=== PATIENT | female | born 1965 | race Caucasian/White ===

== ENCOUNTER → 2017-09-11 | Outpatient (CLI) | payer OTHER | LOC: HYPER 06:45 | DX: T81.31XA Disruption of external operation (surgical) wound, not elsewhere classified, initial encounter (principal); Z85.3 Personal history of malignant neoplasm of breast; F17.200 Nicotine dependence, unspecified, uncomplicated; Y92.89 Other specified places as the place of occurrence of the external cause; Y83.8 Other surgical procedures as the cause of abnormal reaction of the patient, or of later complication, without mention of misadventure at the time of the procedure ==

== ENCOUNTER → 2017-09-12 | Outpatient (CLI) | payer OTHER | LOC: RAD 09:21 | DX: R05 Cough (principal) ==

== ENCOUNTER → 2017-09-15 | Outpatient (CLI) | payer OTHER | LOC: HYPER 08:00 | DX: L59.8 Other specified disorders of the skin and subcutaneous tissue related to radiation (principal); F17.200 Nicotine dependence, unspecified, uncomplicated; Z85.3 Personal history of malignant neoplasm of breast; Y84.2 Radiological procedure and radiotherapy as the cause of abnormal reaction of the patient, or of later complication, without mention of misadventure at the time of the procedure ==

== ENCOUNTER → 2017-09-16 | Outpatient (CLI) | payer OTHER | LOC: HYPER 09-15 11:12 | DX: T81.31XD Disruption of external operation (surgical) wound, not elsewhere classified, subsequent encounter (principal); L59.8 Other specified disorders of the skin and subcutaneous tissue related to radiation; F17.200 Nicotine dependence, unspecified, uncomplicated; Y83.8 Other surgical procedures as the cause of abnormal reaction of the patient, or of later complication, without mention of misadventure at the time of the procedure; Y84.2 Radiological procedure and radiotherapy as the cause of abnormal reaction of the patient, or of later complication, without mention of misadventure at the time of the procedure ==

== ENCOUNTER → 2017-09-17 | Outpatient (CLI) | payer OTHER | LOC: HYPER 07:04 | DX: T81.31XD Disruption of external operation (surgical) wound, not elsewhere classified, subsequent encounter (principal); L59.8 Other specified disorders of the skin and subcutaneous tissue related to radiation; F17.200 Nicotine dependence, unspecified, uncomplicated; Z85.3 Personal history of malignant neoplasm of breast; Y83.8 Other surgical procedures as the cause of abnormal reaction of the patient, or of later complication, without mention of misadventure at the time of the procedure; Y84.2 Radiological procedure and radiotherapy as the cause of abnormal reaction of the patient, or of later complication, without mention of misadventure at the time of the procedure ==

== ENCOUNTER → 2017-09-18 | Outpatient (CLI) | payer OTHER | LOC: HYPER 06:57 | DX: T81.31XA Disruption of external operation (surgical) wound, not elsewhere classified, initial encounter (principal); L59.8 Other specified disorders of the skin and subcutaneous tissue related to radiation; F17.210 Nicotine dependence, cigarettes, uncomplicated; Z85.3 Personal history of malignant neoplasm of breast; Y84.2 Radiological procedure and radiotherapy as the cause of abnormal reaction of the patient, or of later complication, without mention of misadventure at the time of the procedure; Y92.89 Other specified places as the place of occurrence of the external cause; Y83.8 Other surgical procedures as the cause of abnormal reaction of the patient, or of later complication, without mention of misadventure at the time of the procedure ==

== ENCOUNTER → 2017-09-23 | Outpatient (CLI) | payer OTHER | LOC: HYPER 06:50 | DX: T81.31XD Disruption of external operation (surgical) wound, not elsewhere classified, subsequent encounter (principal); L59.8 Other specified disorders of the skin and subcutaneous tissue related to radiation; F17.210 Nicotine dependence, cigarettes, uncomplicated; Z85.3 Personal history of malignant neoplasm of breast; Y83.8 Other surgical procedures as the cause of abnormal reaction of the patient, or of later complication, without mention of misadventure at the time of the procedure ==

== ENCOUNTER → 2017-09-24 | Outpatient (CLI) | payer OTHER | LOC: HYPER 09-19 08:03 | DX: T81.31XD Disruption of external operation (surgical) wound, not elsewhere classified, subsequent encounter (principal); L59.8 Other specified disorders of the skin and subcutaneous tissue related to radiation; F17.210 Nicotine dependence, cigarettes, uncomplicated; Z85.3 Personal history of malignant neoplasm of breast; Y83.8 Other surgical procedures as the cause of abnormal reaction of the patient, or of later complication, without mention of misadventure at the time of the procedure; Y84.2 Radiological procedure and radiotherapy as the cause of abnormal reaction of the patient, or of later complication, without mention of misadventure at the time of the procedure ==

== ENCOUNTER → 2017-09-25 | Outpatient (CLI) | payer OTHER | LOC: HYPER 07:01 | DX: L59.8 Other specified disorders of the skin and subcutaneous tissue related to radiation (principal); M87.38 Other secondary osteonecrosis, other site; F17.200 Nicotine dependence, unspecified, uncomplicated; Z85.3 Personal history of malignant neoplasm of breast; Y84.2 Radiological procedure and radiotherapy as the cause of abnormal reaction of the patient, or of later complication, without mention of misadventure at the time of the procedure ==

== ENCOUNTER → 2017-09-29 | Outpatient (CLI) | payer OTHER | LOC: HYPER 07:04 | DX: L59.8 Other specified disorders of the skin and subcutaneous tissue related to radiation (principal); M87.88 Other osteonecrosis, other site; F17.200 Nicotine dependence, unspecified, uncomplicated; Z85.3 Personal history of malignant neoplasm of breast; Y84.2 Radiological procedure and radiotherapy as the cause of abnormal reaction of the patient, or of later complication, without mention of misadventure at the time of the procedure ==

== ENCOUNTER → 2017-09-30 | Outpatient (CLI) | payer OTHER | LOC: HYPER 06:58 | DX: T81.31XD Disruption of external operation (surgical) wound, not elsewhere classified, subsequent encounter (principal); L59.8 Other specified disorders of the skin and subcutaneous tissue related to radiation; Z85.3 Personal history of malignant neoplasm of breast; F17.200 Nicotine dependence, unspecified, uncomplicated; Y83.8 Other surgical procedures as the cause of abnormal reaction of the patient, or of later complication, without mention of misadventure at the time of the procedure ==

== ENCOUNTER → 2017-10-01 | Outpatient (CLI) | payer OTHER | LOC: HYPER 06:56 | DX: L59.8 Other specified disorders of the skin and subcutaneous tissue related to radiation (principal); F17.200 Nicotine dependence, unspecified, uncomplicated; Z85.3 Personal history of malignant neoplasm of breast; Y84.2 Radiological procedure and radiotherapy as the cause of abnormal reaction of the patient, or of later complication, without mention of misadventure at the time of the procedure ==

== ENCOUNTER → 2017-10-07 | Outpatient (CLI) | payer OTHER | LOC: HYPER 06:50 | DX: T81.31XA Disruption of external operation (surgical) wound, not elsewhere classified, initial encounter (principal); L59.8 Other specified disorders of the skin and subcutaneous tissue related to radiation; F17.210 Nicotine dependence, cigarettes, uncomplicated; Z85.3 Personal history of malignant neoplasm of breast; Y83.8 Other surgical procedures as the cause of abnormal reaction of the patient, or of later complication, without mention of misadventure at the time of the procedure; Y92.89 Other specified places as the place of occurrence of the external cause ==

== ENCOUNTER → 2017-10-09 | Outpatient (CLI) | payer OTHER | LOC: HYPER 07:02 | DX: T81.31XD Disruption of external operation (surgical) wound, not elsewhere classified, subsequent encounter (principal); L59.8 Other specified disorders of the skin and subcutaneous tissue related to radiation; F17.210 Nicotine dependence, cigarettes, uncomplicated; Z85.3 Personal history of malignant neoplasm of breast; Y83.8 Other surgical procedures as the cause of abnormal reaction of the patient, or of later complication, without mention of misadventure at the time of the procedure ==

== ENCOUNTER → 2017-10-13 | Outpatient (CLI) | payer OTHER | LOC: HYPER 06:49 | DX: T81.31XD Disruption of external operation (surgical) wound, not elsewhere classified, subsequent encounter (principal); L59.8 Other specified disorders of the skin and subcutaneous tissue related to radiation; M87.88 Other osteonecrosis, other site; F17.200 Nicotine dependence, unspecified, uncomplicated; Z85.3 Personal history of malignant neoplasm of breast; Y83.8 Other surgical procedures as the cause of abnormal reaction of the patient, or of later complication, without mention of misadventure at the time of the procedure; Y84.2 Radiological procedure and radiotherapy as the cause of abnormal reaction of the patient, or of later complication, without mention of misadventure at the time of the procedure ==

== ENCOUNTER → 2017-10-14 | Outpatient (CLI) | payer OTHER | LOC: HYPER 06:55 | DX: T81.31XD Disruption of external operation (surgical) wound, not elsewhere classified, subsequent encounter (principal); L59.8 Other specified disorders of the skin and subcutaneous tissue related to radiation; F17.210 Nicotine dependence, cigarettes, uncomplicated; Z85.3 Personal history of malignant neoplasm of breast; Y83.8 Other surgical procedures as the cause of abnormal reaction of the patient, or of later complication, without mention of misadventure at the time of the procedure ==

== ENCOUNTER → 2017-10-15 | Outpatient (CLI) | payer OTHER | LOC: HYPER 06:50 | DX: L59.8 Other specified disorders of the skin and subcutaneous tissue related to radiation (principal); T81.31XD Disruption of external operation (surgical) wound, not elsewhere classified, subsequent encounter; M87.88 Other osteonecrosis, other site; F17.200 Nicotine dependence, unspecified, uncomplicated; Z85.3 Personal history of malignant neoplasm of breast; Y84.2 Radiological procedure and radiotherapy as the cause of abnormal reaction of the patient, or of later complication, without mention of misadventure at the time of the procedure; Y83.8 Other surgical procedures as the cause of abnormal reaction of the patient, or of later complication, without mention of misadventure at the time of the procedure ==

== ENCOUNTER → 2017-10-20 | Outpatient (CLI) | payer OTHER | LOC: HYPER 06:59 | DX: M87.88 Other osteonecrosis, other site (principal); L59.8 Other specified disorders of the skin and subcutaneous tissue related to radiation; F17.200 Nicotine dependence, unspecified, uncomplicated; Z85.3 Personal history of malignant neoplasm of breast; Y84.2 Radiological procedure and radiotherapy as the cause of abnormal reaction of the patient, or of later complication, without mention of misadventure at the time of the procedure ==

== ENCOUNTER → 2017-10-21 | Outpatient (CLI) | payer OTHER | LOC: HYPER 10-10 08:23 | DX: L59.8 Other specified disorders of the skin and subcutaneous tissue related to radiation (principal); M87.88 Other osteonecrosis, other site; T81.31XD Disruption of external operation (surgical) wound, not elsewhere classified, subsequent encounter; F17.200 Nicotine dependence, unspecified, uncomplicated; Z85.3 Personal history of malignant neoplasm of breast; Y84.2 Radiological procedure and radiotherapy as the cause of abnormal reaction of the patient, or of later complication, without mention of misadventure at the time of the procedure; Y83.8 Other surgical procedures as the cause of abnormal reaction of the patient, or of later complication, without mention of misadventure at the time of the procedure ==

== ENCOUNTER → 2017-10-22 | Outpatient (CLI) | payer OTHER | LOC: HYPER 06:39 | DX: L59.8 Other specified disorders of the skin and subcutaneous tissue related to radiation (principal); M87.88 Other osteonecrosis, other site; Z85.3 Personal history of malignant neoplasm of breast; F17.200 Nicotine dependence, unspecified, uncomplicated; Y84.2 Radiological procedure and radiotherapy as the cause of abnormal reaction of the patient, or of later complication, without mention of misadventure at the time of the procedure ==

== ENCOUNTER → 2017-10-23 | Outpatient (CLI) | payer OTHER | LOC: HYPER 06:48 | DX: L59.8 Other specified disorders of the skin and subcutaneous tissue related to radiation (principal); F17.200 Nicotine dependence, unspecified, uncomplicated; Z85.3 Personal history of malignant neoplasm of breast; Y84.2 Radiological procedure and radiotherapy as the cause of abnormal reaction of the patient, or of later complication, without mention of misadventure at the time of the procedure ==

== ENCOUNTER → 2017-10-27 | Outpatient (CLI) | payer OTHER | LOC: HYPER 06:54 | DX: L59.8 Other specified disorders of the skin and subcutaneous tissue related to radiation (principal); F17.200 Nicotine dependence, unspecified, uncomplicated; Z85.3 Personal history of malignant neoplasm of breast; Y84.2 Radiological procedure and radiotherapy as the cause of abnormal reaction of the patient, or of later complication, without mention of misadventure at the time of the procedure ==

== ENCOUNTER → 2017-10-28 | Outpatient (CLI) | payer OTHER | LOC: HYPER 06:29 | DX: L59.8 Other specified disorders of the skin and subcutaneous tissue related to radiation (principal); F17.200 Nicotine dependence, unspecified, uncomplicated; Z85.3 Personal history of malignant neoplasm of breast; Y84.2 Radiological procedure and radiotherapy as the cause of abnormal reaction of the patient, or of later complication, without mention of misadventure at the time of the procedure ==

== ENCOUNTER → 2017-10-30 | Outpatient (CLI) | payer OTHER | LOC: HYPER 06:31 | DX: L59.8 Other specified disorders of the skin and subcutaneous tissue related to radiation (principal); F17.200 Nicotine dependence, unspecified, uncomplicated; Z85.3 Personal history of malignant neoplasm of breast; Y84.2 Radiological procedure and radiotherapy as the cause of abnormal reaction of the patient, or of later complication, without mention of misadventure at the time of the procedure ==

== ENCOUNTER → 2017-11-04 | Outpatient (CLI) | payer OTHER | LOC: HYPER 10-02 11:01 | DX: L59.8 Other specified disorders of the skin and subcutaneous tissue related to radiation (principal); F17.200 Nicotine dependence, unspecified, uncomplicated; Z85.3 Personal history of malignant neoplasm of breast; Y84.2 Radiological procedure and radiotherapy as the cause of abnormal reaction of the patient, or of later complication, without mention of misadventure at the time of the procedure ==

== ENCOUNTER → 2017-11-10 | Outpatient (CLI) | payer OTHER | LOC: HYPER 06:33 | DX: L59.8 Other specified disorders of the skin and subcutaneous tissue related to radiation (principal); F17.200 Nicotine dependence, unspecified, uncomplicated; Z85.3 Personal history of malignant neoplasm of breast; Y84.2 Radiological procedure and radiotherapy as the cause of abnormal reaction of the patient, or of later complication, without mention of misadventure at the time of the procedure ==

== ENCOUNTER → 2017-11-11 | Outpatient (CLI) | payer OTHER | LOC: HYPER 06:32 | DX: L59.8 Other specified disorders of the skin and subcutaneous tissue related to radiation (principal); F17.200 Nicotine dependence, unspecified, uncomplicated; Z85.3 Personal history of malignant neoplasm of breast; Y84.2 Radiological procedure and radiotherapy as the cause of abnormal reaction of the patient, or of later complication, without mention of misadventure at the time of the procedure ==

== ENCOUNTER 2018-04-21 05:41 | Day surgery (SDC) | payer OTHER ==
[~2018-04-21] VITALS: Ht 162.6 cm; Wt 64.9 kg
[~2018-04-21 05:41] MED LIST: ARIMIDEX PO; FIBER GUMMIES1 EACH PO; LIPITOR10 MG PO; MIRAPEX1 MG PO
[2018-04-21 08:30] LABS: HEMATOCRIT 41.3 % (37.0-47.0); HEMOGLOBIN 13.8 gm/dL (12.0-15.0)
[2018-04-21 09:00] VITALS: BP 113/77
--- NOTE | 2018-04-21 09:28 | EKG ---
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
[2018-04-21] MEDS ORDERED: ONDANSETRON HCL4 M2 PO (11:19)
[2018-04-21] MEDS ORDERED: NEURONTIN 300300 M1 PO (11:19)
[2018-04-21] MEDS ORDERED: NORCO 5-325 TA1 EACH PO (11:19)
[2018-04-21 12:33] VITALS: BP 113/77
--- NOTE | 2018-04-23 15:07 | PATH ---
[facility] [address] [place] [address] PATHOLOGY RPT PROCEDURE Name: RADHA VELOZ Room #: DEP [facility]..#: [id number] Admission: 04/21/18 Date of : 61 Discharge: 04/21/18 Report #: [id number] Path Case #: [id number] [facility] Accession Number: [id number] . 01 Material submitted: . HERNIA SAC . 01 Clinical history: . Umbilical and ventral hernia . 02 Diagnosis: Hernia sac, laparoscopic hernia repair: - Congested fibroadipose and fibrovascular connective tissue compatible with the hernia sac. . (IUV:at;04/22/2018) QTA/04/22/2018 . 02 Electronically signed: . Elise Deluna MD, Pathologist NPI- [id number] . 01 Gross description: . The specimen is received in formalin, labeled "Bro, Radha, hernia sac" and consists of multiple segments of pink-alvarado and edematous tissue with attached yellow lobulated tissue measuring 7.8 x 4.3 x 1.9 cm in aggregate. Sectioning reveals no nodules or mass lesions. Merchandise Processor sections are submitted in A1. (SDY; 04/21/2018) SYU/SYU . 02 Pathologist provided ICD-10: K42.9, K43.9 . 02 CPT . 365384 Specimen Comment: A courtesy copy of this report has been sent to Specimen Comment: [phone], . Specimen Comment: Report sent to / DR BUNCH Specimen Comment: A duplicate report has been generated due to demographic updates. Performed at: [address] [id number] MD Ras Edwards MD Phone: [phone] Performed at: 02 [facility] [address] [place] [address] PATHOLOGY RPT PROCEDURE Name: RADHA VELOZ Room #: DEP [facility]..#: [id number] Admission: 04/21/18 Date of : 61 Discharge: 04/21/18 Report #: [id number] Path Case #: [id number] [address] [place], [place] [id number] MD Elise Deluna MD Phone: [phone]
== END 2018-04-21 13:05 | disposition home or self-care (01) ==
LOC: OR 05:41 → TBA 05:41 → OR 10:19
PROVIDERS: Surgery
DX: K42.0 Umbilical hernia with obstruction, without gangrene (principal); K43.0 Incisional hernia with obstruction, without gangrene; E78.00 Pure hypercholesterolemia, unspecified; G25.81 Restless legs syndrome; Z79.899 Other long term (current) drug therapy; Z87.891 Personal history of nicotine dependence; Z98.890 Other specified postprocedural states; Z85.3 Personal history of malignant neoplasm of breast
CPT/HCPCS: 50010; 50101; 50249; 50386; 50555; 50558; 50962; 50978; 50984; 52265; 53307; 53310; 53335; 54022; 54118; 56525; 56526; 57092; 62110; 62900; 70005